=== PATIENT | female | born 1990 | race Caucasian/White ===

== ENCOUNTER 2019-07-19 17:47 | Emergency (ER) | payer OTHER ==
[~2019-07-19] VITALS: Ht 172.7 cm; Wt 79.7 kg
--- NOTE | 2019-07-19 19:43 | REP ---
CHEST: Two views. There is no evidence of acute infiltrate. No pleural effusion is seen. The heart is normal in size. The mediastinal silhouette is unremarkable. The visualized osseous structures are intact. IMPRESSION: No acute pulmonary disease. Electronically Signed by Ricardo Blackmon MD 07/19/2019 09:31 P
[2019-07-19] MEDS ORDERED: ALBUTEROL SULFATE 2.5 MG/0.5 ML INH NEB SOLN NEB ONE (19:45)
[2019-07-19] MEDS ORDERED: BENZONATATE 100 MG CAP PO ONE (19:45)
[2019-07-19] MEDS ORDERED: PROAAER10 INH (20:10)
[2019-07-19] MEDS ORDERED: MUCI1TAB18 PO (20:10)
[2019-07-19] MEDS ORDERED: TESS100C PO (20:10)
[2019-07-19 20:17] VITALS: BP 127/61
== END 2019-07-19 20:18 | disposition home or self-care (01) ==
LOC: M ED 17:47
DX: J20.9 Acute bronchitis, unspecified (principal); B34.9 Viral infection, unspecified